=== PATIENT | male | born 1970 | race Caucasian/White ===

== ENCOUNTER 2021-11-23 19:52 | Inpatient (IN) | payer OTHER ==
[2021-11-23 20:10] VITALS: BMI 36.1
[2021-11-23] MEDS ORDERED: MAG HYDROX/AL HYDROX/SIMETH 30 ML UNIT-DOSE CUP PO PRN (21:44)
[2021-11-23] MEDS ORDERED: NICOTINE 10 MG CARTRIDGE (INHALER) IH PRN (21:44)
[2021-11-23] MEDS ORDERED: DICYCLOMINE HCL 10 MG CAPSULE PO PRN (21:44)
[2021-11-23] MEDS ORDERED: MAGNESIUM CITRATE 300 ML BOTTLE PO PRN (21:44)
[2021-11-23] MEDS ORDERED: LOPERAMIDE HCL 2 MG CAPSULE PO PRN (21:44)
[2021-11-23] MEDS ORDERED: BISMUTH SUBSALICYLATE 524 MG/30 ML PO PRN (21:44)
[2021-11-23] MEDS ORDERED: IBUPROFEN 600 MG TABLET (FP) PO PRN (21:44)
[2021-11-23] MEDS ORDERED: ACETAMINOPHEN 325 MG TABLET (FP) PO PRN ×2 (21:44)
[2021-11-23] MEDS ORDERED: ONDANSETRON *ODT* 4 MG TABLET SL PRN (21:44)
[2021-11-23] MEDS ORDERED: IBUPROFEN 400 MG TABLET (FP) PO PRN (21:44)
[2021-11-23] MEDS ORDERED: chlordiazePOXIDE HCL 25 MG CAPSULE PO PRN (21:44)
[2021-11-23] MEDS ORDERED: MAGNESIUM HYDROX 2400MG/30ML ORAL SUSPENSION 30 ML CUP PO PRN (21:44)
[2021-11-23] MEDS ORDERED: BENZOCAINE/MENTHOL (CHLORASEPTIC ) LOZENGE MM PRN (21:44)
[2021-11-23] MEDS ORDERED: INSULIN (NOVOLOG) ASPART 100 UNITS/ML 10ML VIAL ONE (23:34)
[2021-11-23] MEDS: chlordiazePOXIDE HCL 25 MG CAPSULE PO SCH (23:38)
[2021-11-23] MEDS: MELATONIN 5 MG TABLETS PO SCH (23:47)
[2021-11-23] MEDS: INSULIN SLIDING SCALE (NOVOLOG) 1 VIAL SQ SCH (23:47)
[2021-11-23] MEDS: THIAMINE HCL 100 MG TABLET (FP) PO SCH (23:52)
[2021-11-24] MEDS: chlordiazePOXIDE HCL 25 MG CAPSULE PO SCH ×4 (06:27→22:21)
[2021-11-24] MEDS: INSULIN SLIDING SCALE (NOVOLOG) 1 VIAL SQ SCH ×4 (06:31→23:29)
[2021-11-24] MEDS: PRENATAL VITAMINS W/ FOLIC ACID TABLET (FP) PO SCH (10:29)
[2021-11-24] MEDS ORDERED: INSULIN (NOVOLOG) ASPART 100 UNITS/ML 10ML VIAL ONE ×2 (11:50→17:29)
[2021-11-24 12:52] LABS: HEMATOCRIT 38.3 % (35.4-49); HEMOGLOBIN 13.3 GM/dL (11.7-16.9); MCH 31.4 pg (25.7-33.7); MCHC 34.6 g/dl (32.0-35.9); MEAN CELL VOLUME 90.6 fl (80-96); PLATELET COUNT 205 10^3/uL (134-434); RBC 4.23 M/mm3 (4.00-5.60); RDW 14.8 % (11.9-15.9)
[2021-11-24 13:21] LABS: CALCIUM 8.4 mg/dL (8.5-10.1)
[2021-11-24 13:22] LABS: ALBUMIN 3.3 g/dl (3.4-5.0); BLOOD UREA NITROGEN 15.2 mg/dL (7-18)
[2021-11-24 13:24] LABS: CREATININE 0.8 mg/dL (0.55-1.3)
[2021-11-24 13:26] LABS: BILIRUBIN,TOTAL 0.4 mg/dL (0.2-1); TOT PROT 7.2 g/dl (6.4-8.2)
[2021-11-24] MEDS ORDERED: ERGOCALCIFEROL (VIT D2) 50,000 UNIT (1.25 MG) CAPSULE PO SCH (13:45)
[2021-11-24] MEDS: LISINOPRIL 20 MG TABLET PO SCH (14:12)
[2021-11-24] MEDS: ATORVASTATIN CA 20 MG TABLET (FP) PO SCH (22:21)
[2021-11-24] MEDS: THIAMINE HCL 100 MG TABLET (FP) PO SCH (22:21)
[2021-11-24] MEDS: MELATONIN 5 MG TABLETS PO SCH (22:23)
[2021-11-25] MEDS: chlordiazePOXIDE HCL 25 MG CAPSULE PO SCH ×4 (05:34→22:10)
[2021-11-25] MEDS: INSULIN SLIDING SCALE (NOVOLOG) 1 VIAL SQ SCH ×4 (08:05→22:11)
[2021-11-25] MEDS: METHOCARBAMOL 500 MG TABLET PO PRN (10:18)
[2021-11-25] MEDS: LISINOPRIL 20 MG TABLET PO SCH (10:18)
[2021-11-25] MEDS: PRENATAL VITAMINS W/ FOLIC ACID TABLET (FP) PO SCH (10:18)
[2021-11-25] MEDS ORDERED: INSULIN (NOVOLOG) ASPART 100 UNITS/ML 10ML VIAL ONE ×3 (11:48→22:09)
[2021-11-25] MEDS: MELATONIN 5 MG TABLETS PO SCH (22:10)
[2021-11-25] MEDS: ATORVASTATIN CA 20 MG TABLET (FP) PO SCH (22:10)
[2021-11-25] MEDS: THIAMINE HCL 100 MG TABLET (FP) PO SCH (22:10)
[2021-11-26] MEDS ORDERED: chlordiazePOXIDE HCL 10 MG CAPSULE PO PRN
[2021-11-26] MEDS: chlordiazePOXIDE HCL 10 MG CAPSULE PO SCH ×4 (06:04→22:24)
[2021-11-26] MEDS ORDERED: INSULIN (NOVOLOG) ASPART 100 UNITS/ML 10ML VIAL ONE ×4 (07:21→22:27)
[2021-11-26] MEDS: INSULIN SLIDING SCALE (NOVOLOG) 1 VIAL SQ SCH ×4 (07:27→22:26)
[2021-11-26] MEDS: PRENATAL VITAMINS W/ FOLIC ACID TABLET (FP) PO SCH (10:30)
[2021-11-26] MEDS: LISINOPRIL 20 MG TABLET PO SCH (10:31)
[2021-11-26] MEDS: METHOCARBAMOL 500 MG TABLET PO PRN (20:20)
[2021-11-26] MEDS: ATORVASTATIN CA 20 MG TABLET (FP) PO SCH (22:24)
[2021-11-26] MEDS: THIAMINE HCL 100 MG TABLET (FP) PO SCH (22:24)
[2021-11-26] MEDS: MELATONIN 5 MG TABLETS PO SCH (22:29)
[2021-11-27] MEDS: chlordiazePOXIDE HCL 10 MG CAPSULE PO SCH ×2 (05:32→17:17)
[2021-11-27] MEDS: INSULIN SLIDING SCALE (NOVOLOG) 1 VIAL SQ SCH ×4 (07:09→22:17)
[2021-11-27] MEDS: PRENATAL VITAMINS W/ FOLIC ACID TABLET (FP) PO SCH (10:28)
[2021-11-27] MEDS: METHOCARBAMOL 500 MG TABLET PO PRN (10:29)
[2021-11-27] MEDS: LISINOPRIL 20 MG TABLET PO SCH (10:29)
[2021-11-27] MEDS ORDERED: INSULIN (NOVOLOG) ASPART 100 UNITS/ML 10ML VIAL ONE ×3 (11:36→22:19)
[2021-11-27] MEDS: THIAMINE HCL 100 MG TABLET (FP) PO SCH (22:13)
[2021-11-27] MEDS: MELATONIN 5 MG TABLETS PO SCH (22:17)
[2021-11-27] MEDS: ATORVASTATIN CA 20 MG TABLET (FP) PO SCH (22:19)
[2021-11-28] MEDS ORDERED: chlordiazePOXIDE HCL 10 MG CAPSULE PO ONE (05:00)
[2021-11-28] MEDS: INSULIN SLIDING SCALE (NOVOLOG) 1 VIAL SQ SCH (08:28)
[2021-11-28] MEDS: LISINOPRIL 20 MG TABLET PO SCH (09:13)
[2021-11-28 09:24] VITALS: BP 136/76; PULSE 94; TEMP 97.8
== END 2021-11-28 09:50 | disposition home or self-care (01) | DRG 897 ==
LOC: YASAS 19:52 → Y6N 21:54
PROVIDERS: ADMIT Allergy & Immunology; ATTEND Surgery
PROC: HZ2ZZZZ Detoxification Services for Substance Abuse Treatment (ICD-10-PCS; principal; 2021-11-23)
DX: F10.230 Alcohol dependence with withdrawal, uncomplicated (principal); F10.280 Alcohol dependence with alcohol-induced anxiety disorder; F10.24 Alcohol dependence with alcohol-induced mood disorder; F31.9 Bipolar disorder, unspecified; I10 Essential (primary) hypertension; E78.5 Hyperlipidemia, unspecified; E11.9 Type 2 diabetes mellitus without complications; Z79.84 Long term (current) use of oral hypoglycemic drugs; R76.11 Nonspecific reaction to tuberculin skin test without active tuberculosis; Z62.810 Personal history of physical and sexual abuse in childhood; Z87.891 Personal history of nicotine dependence
CPT/HCPCS: 36415; 71046-TC-FY; 80053; 82962; 85027; 86780; 87811; 93005; 93010; C9803-CS; U0003; U0005